=== PATIENT | female | born 1980 | race Caucasian/White ===

== ENCOUNTER 2020-12-15 14:43 | Emergency (ER) | payer BC ==
[~2020-12-15] VITALS: Ht 170.2 cm; Wt 87.2 kg
[2020-12-15] MEDS ORDERED: SODIUM CHLORIDE FLUSH 10ML SYR IVF ONE (15:30)
[2020-12-15 15:44] LABS: BASOPHILS % (AUTO) 1 % (0-1); EOSINOPHILS % (AUTO) 1 % (1-7); LYMPHOCYTES % (AUTO) 35 % (22-44); MEAN CORPUSCULAR HEMOGLOBIN 28.3 pg (27.0-34.8); MONOCYTES % (AUTO) 8 % (2-9); NEUTROPHILS % (AUTO) 55 % (42-75); PLATELET COUNT 229 x10^3/uL (130-400); RED BLOOD COUNT 5.08 x10^6/uL (3.82-5.3); RED CELL DISTRIBUTION WIDTH 18.4 % (9.6-15.2)
[2020-12-15 15:45] LABS: ALANINE AMINOTRANSFERASE 29 U/L (12-78); ALBUMIN 4.3 g/dL (3.4-5.0); ANION GAP 4 mmol/L (5-15); CALCIUM 8.6 mg/dL (8.5-10.1); CHLORIDE 108 mmol/L (98-107); CREATININE 0.65 mg/dL (0.55-1.02); MD NO
[2020-12-15 15:50] LABS: ALKALINE PHOSPHATASE 107 U/L (45-117); BILIRUBIN,TOTAL 0.3 mg/dL (0.2-1.0); T4 (THYROXINE) 8.9 mcg/dL (4.8-13.9); TROPONIN I < 0.015 ng/mL (0.000-0.045)
[2020-12-15 16:34] VITALS: BP 110/66
== END 2020-12-15 16:38 | disposition home or self-care (01) ==
LOC: ED 15:32
DX: R00.2 Palpitations (principal); R42 Dizziness and giddiness; R94.31 Abnormal electrocardiogram [ECG] [EKG]
CPT/HCPCS: 36415; 71045; 80053; 83880; 84436; 84443; 84484; 85025; 85379; 93005; 99285